=== PATIENT | male | born 1995 | race Caucasian/White ===

== ENCOUNTER → 2016-11-02 | Outpatient (CLI) | payer OTHER ==
[~2016-11-02] MED LIST: CONTRAST GIVEN MC PRN; IOHEXOL 240 MG/ML 50ML VIAL. PO ONE; IOHEXOL 300 MG/ML 100ML VIAL. IV ONE; PANT40TA5 PO; PROM12.56 PO
--- NOTE | 2016-11-02 13:26 | KCIC ---
CT ABDOMEN W/CONTRAST dated 11/02/2016 12:30 PM Indication: Right-sided abdominal pain intermittently worse the last week, nausea and vomiting Comparison: No comparison is available. Technique: After the administration of intravenous and oral contrast, CT imaging was performed of the[abdomen], multiplanar reconstruction images submitted. Pelvis was not imaged with this exam. One or more of the following individualized dose reduction techniques were utilized for this examination: 1. Automated exposure control 2. Adjustment of the mA and/or kV according to patient size 3. Use of iterative reconstruction technique. Contrast: 89 cc Omnipaque 300 Findings: There is no abnormality of the limited visualized lung bases. No focal abnormality is identified of the liver, spleen, pancreas, adrenal glands, kidneys. Both kidneys enhance, no hydronephrosis. There is appropriate enhancement of the portal vein. Bowel in the abdomen is not significantly dilated. There is no free fluid or free air in the abdomen. No significant inflammatory change or bowel wall thickening is identified. The appendix is not confidently identified. IMPRESSION: 1. No significant acute abnormality is identified. Pelvis was not imaged for this exam. Appendix is not seen on this exam. Electronically signed by: Que Santiago MD (11/02/2016 1:22 PM) [facility]
== END | disposition home or self-care (01) ==
LOC: KCIC CT 11:18
PROVIDERS: ATTEND Family Medicine
DX: R10.9 Unspecified abdominal pain (principal)
CPT/HCPCS: 74160; Q9966; Q9967

== ENCOUNTER → 2016-12-22 | Day surgery (SDC) | payer OTHER ==
[~2016-12-22] MED LIST changes: -CONTRAST GIVEN MC PRN; +HYDROmorphone 2 MG/ML VIAL IV PRN; -IOHEXOL 240 MG/ML 50ML VIAL. PO ONE; -IOHEXOL 300 MG/ML 100ML VIAL. IV ONE; +IV RINGERS,LACTATED 1000ML 1,000 ML IV SCH; +LIDOCAINE 1% PF 2 ML VIAL. ID PRN; +LIDOCAINE 2% PF Vial for OR 5 ML VIAL. ONE; +MORPHINE SULFATE 2 MG/ML DISP.SYRIN. IV PRN; +ONDANSETRON PF 4 MG/2 ML VIAL. IV PRN; +PROCHLORPERAZINE 10 MG/2 ML VIAL. IV PRN; +PROPOFOL 40 ML IV ONE; +fentaNYL PF VIAL 100 MCG/2 ML VIAL IV PRN
[2016-12-22 09:35] VITALS: BP 114/68
--- NOTE | 2016-12-25 10:55 | PATHOLOGY ---
PATHOLOGY REPORT * * * * * * * * FINAL DIAGNOSIS: Duodenal biopsies: - No significant pathologic abnormalities. (JPM:pit; 12/25/2016) COMMENT: Sections of the duodenal biopsy reveal multiple segments of duodenal and small intestine mucosa. Where best oriented, the mucosal villi appear normal. There are no sprue-like changes or significant inflammatory changes. (JPM:pit; 12/25/2016) REPORT ELECTRONICALLY SIGNED BY: Portillo Vela M.D. DATE/TIME: 12/25/2016 10:55 * * * * * * * * GROSS PATHOLOGY: Received in formalin labeled "Erica Shearer, duodenal BX's," are 7 segments of carpenter soft tissue measuring 1.9 x 0.8 x 0.3 cm in aggregate dimensions and ranging from 0.2 to 0.5 cm in maximum dimension. The specimen is submitted entirely in cassette A1. (TSD; 12/22/2016) INITIAL CPT CODE(S): A; 09410 Professional services performed [place] [facility] [place] [address] Technical services performed by [facility] at [address] [place] [address] [address] [address]. SPECIMEN(S) RECEIVED: A.Duodenal biopsies CLINICAL HISTORY: Nausea, vomiting PATIENT: ERICA SHEARER /AGE: 103/24/1995 (Age: 21) PATIENT #: [id number] ALT CASE #: SPECIMEN COLLECTION DATE: 12/22/2016 SPECIMEN RECEIVED DATE: 12/22/2016 [facility] - [address] [place] [address] - PHONE: [phone] * * * END OF REPORT * * *
== END | disposition home or self-care (01) ==
LOC: ENDOS 07:24
PROVIDERS: ATTEND Internal Medicine Gastroenterology
DX: K29.50 Unspecified chronic gastritis without bleeding (principal); K31.89 Other diseases of stomach and duodenum; Z88.0 Allergy status to penicillin
CPT/HCPCS: 43239; 88305; J2704; J2001